=== PATIENT | male | born 1965 | race Caucasian/White ===

== ENCOUNTER 2018-03-06 19:20 | Emergency (ER) | payer OTHER ==
[~2018-03-06] VITALS: Ht 172.7 cm; Wt 81.0 kg
[2018-03-06] MEDS ORDERED: BACITRACIN ZINC OINT 500U/GM, 0.9 GM ONE (19:54)
[2018-03-06 20:07] VITALS: BP 112/79
[2018-03-06] MEDS ORDERED: IBUPROFEN 200 MG TABLET PO ONE (20:30)
== END 2018-03-06 20:22 | disposition home or self-care (01) ==
LOC: ED 20:00
DX: S20.00XA Contusion of breast, unspecified breast, initial encounter (principal); V29.40XA Motorcycle driver injured in collision with unspecified motor vehicles in traffic accident, initial encounter; Y93.55 Activity, bike riding; Y92.410 Unspecified street and highway as the place of occurrence of the external cause; Y99.8 Other external cause status; F17.200 Nicotine dependence, unspecified, uncomplicated
CPT/HCPCS: 71046; 93005; 99284